=== PATIENT | male | born 1995 | race Caucasian/White ===

== ENCOUNTER 2017-01-06 18:28 | Emergency (ER) | payer OTHER ==
[2017-01-06 18:34] VITALS: BP 129/90
[2017-01-06] MEDS ORDERED: Ketorolac INJ* 60 MG/2 ML VIAL IM ONE (20:16)
--- NOTE | 2017-01-06 20:24 | ED ---
Throat Pain/Nasal Congestion - HPI Summary HPI Summary: Pt here w/ dental pain along Rt upper molar (wisdom tooth) x 1 month. Saw a dentist who diagnosed him w/ wisdom tooth impaction. Was prescribed percocet 5/ 325mg 12/03 and again 12/07/2016. Pain returned again and dentist rx'd percocet again 01/03 for 6 days - reports he's had so much pain, he's gone through it all already. Reports it's not helping the pain and he feels pain is worse when it wears off. Has not been taking NSAID's. Was rx'd an anbx but hasn't been taking as he can't swallow pills. Denies fever ,chills, drainage into mouth, facial or neck swelling. - History of Current Complaint Chief Complaint: EDDentalPain Time Seen by Provider: 01/06/17 19:34 Hx Obtained From: Patient - Allergies/Home Medications Allergies/Adverse Reactions: Allergies Allergy/AdvReac Type Severity Reaction Status Date / Time No Known Allergies Allergy Verified 01/06/17 18:34 PMH/Surg Hx/FS Hx/Imm Hx Previously Healthy: Yes Endocrine/Hematology History: Denies: Hx Anticoagulant Therapy, Hx Diabetes, Hx Thyroid Disease, Autoimmune Disease Cardiovascular History: Denies: Hx Congestive Heart Failure, Hx Deep Vein Thrombosis, Hx Hypertension , Hx Myocardial Infarction, Hx Pacemaker/ICD Respiratory History: Denies: Hx Asthma, Hx Chronic Obstructive Pulmonary Disease (COPD), Hx Lung Cancer, Hx Pneumonia, Hx Pulmonary Embolism GI History: Denies: Hx Gall Bladder Disease, Hx Gastrointestinal Bleed, Hx Ulcer, Hx Urosepsis History: Denies: Hx Kidney Stones, Hx Renal Disease Neurological History: Denies: Hx Dementia, Hx Migraine, Hx Seizures, Hx Transient Ischemic Attacks (TIA) Psychiatric History: Denies: Hx Anxiety, Hx Depression, Hx Schizophrenia, Hx Bipolar Disorder Infectious Disease History: No Infectious Disease History: Denies: History Other Infectious Disease, Traveled Outside the [place] in Last 30 Days - Family History Known Family History: Negative: None, Cardiac Disease, Hypertension - Social History Occupation: Student Lives: With Family Alcohol Use: None Hx Substance Use: No Substance Use Type: Reports: None Hx Tobacco Use: No Smoking Status (MU): Never Smoked Tobacco Review of Systems Constitutional: Negative Negative: Fever, Chills, Fatigue Eyes: Negative Negative: Photophobia, Blurred Vision, Diplopia Positive: Dental Pain - see HPI. Negative: Sore Throat, Ear Ache, Nasal Discharge Cardiovascular: Negative Negative: Chest Pain Respiratory: Negative Negative: Shortness Of Breath Gastrointestinal: Negative Negative: Vomiting, Nausea Positive: no symptoms reported Musculoskeletal: Negative Negative: Arthralgia, Myalgia Skin: Negative Negative: Rash, Bruising Neurological: Negative Negative: Headache Psychological: Normal All Other Systems Reviewed And Are Negative: Yes Physical Exam Triage Information Reviewed: Yes Vital Signs On Initial Exam: Initial Vitals Temp Pulse Resp BP Pulse Ox 99.1 F 60 17 129/90 98 01/06/17 18:30 10 18:30 01/06/17 18:30 01/06/17 18:30 01/06/17 18:30 Vital Signs Reviewed: Yes Appearance: Positive: Well-Appearing, No Pain Distress, Well-Nourished Skin: Positive: Warm, Dry - no erythema over face Head/Face: Positive: Normal Head/Face Inspection - NTTP, no edema Eyes: Positive: Normal, EOMI, Conjunctiva Clear ENT: Positive: Normal ENT inspection, Hearing grossly normal, Pharynx normal - mucosa moist, TMs normal. Negative: Nasal congestion, Nasal drainage, Tonsillar swelling, Tonsillar exudate, Trismus Dental: Positive: Other - #1 appears swollen and tooth trying to break through gingiva - no edema, no erythema, no drainage. Negative: Gross Decay/Caries @, Dental Fracture @, Abscess @, Bleeding Neck: Positive: Supple, Nontender, No Lymphadenopathy Respiratory/Lung Sounds: Positive: Breath Sounds Present. Negative: Stridor Cardiovascular: Positive: Normal Abdomen Description: Positive: Soft Musculoskeletal: Positive: Normal, Strength/ROM Intact Neurological: Positive: Normal, Sensory/Motor Intact, Alert, Oriented to Person Place, Time, CN Intact II-III Psychiatric: Positive: Normal Procedures - Procedure Summary Procedure Summary: #1 nerve block - topical lidocaine + cetacaine + 0.5mL bupivicaine injected w/ adequate infiltration w/ good results - pt reports relief of pain/pressure Diagnostics - Vital Signs Vital Signs Temp Pulse Resp BP Pulse Ox 01/06/17 18:30 99.1 F 60 17 129/90 98 - Laboratory Lab Statement: Any lab studies that have been ordered have been reviewed, and results considered in the medical decision making process. Re-Evaluation - Re-Evaluation First Eval Change: Improved - reports some pain relief w/ toradol but dental pain is still bothersome - would like dental block Second Eval Change: Improved - pain resovled EENT Course/Dx - Course Course Of Treatment: Dental pain d/t wisdom tooth trying to break through ginigiva - Diagnoses Provider Diagnoses: Pain, dental
[2017-01-06] MEDS ORDERED: Bupivacaine 0.5%* 50 ML VIAL INJ ONE ×2 (22:26→22:44)
[2017-01-06] MEDS ORDERED: Bupivacaine 0.5% SDV PF* 30 ML VIAL ONE (22:44)
[2017-01-06] MEDS ORDERED: Ketorolac TAB * 10 MG TAB PO ONE (23:22)
== END 2017-01-06 23:36 | disposition home or self-care (01) ==
LOC: ED 18:28
DX: K08.89 Other specified disorders of teeth and supporting structures (principal)
CPT/HCPCS: 96372; 99282; J1885

== ENCOUNTER 2018-12-22 21:54 | Emergency (ER) | payer OTHER ==
[2018-12-23] MEDS ORDERED: oxyCODONE TAB* 5 MG TAB PO ONE (03:32)
--- NOTE | 2018-12-23 03:35 | ED ---
Throat Pain/Nasal Congestion - HPI Summary HPI Summary: Patient complains of lower right dental pain 3 days. Patient states he has appointment with dentist this Saturday but is having a hard time and during pain. Has tried ibuprofen with no relief. Denies purulent discharge, other symptoms , pain or injury. Medical history is none. - History of Current Complaint Chief Complaint: EDDentalPain Time Seen by Provider: 12/23/18 03:06 Hx Obtained From: Patient Onset/Duration: Gradual Onset, Lasting Days Severity: Severe Associated Signs And Symptoms: Positive: Negative Cough: None - Allergies/Home Medications Allergies/Adverse Reactions: Allergies Allergy/AdvReac Type Severity Reaction Status Date / Time No Known Allergies Allergy Verified 12/22/18 22:05 PMH/Surg Hx/FS Hx/Imm Hx Endocrine/Hematology History: Denies: Hx Anticoagulant Therapy, Hx Diabetes, Hx Thyroid Disease Cardiovascular History: Denies: Hx Congestive Heart Failure, Hx Deep Vein Thrombosis, Hx Hypertension , Hx Myocardial Infarction, Hx Pacemaker/ICD Respiratory History: Denies: Hx Asthma, Hx Chronic Obstructive Pulmonary Disease (COPD), Hx Lung Cancer, Hx Pneumonia, Hx Pulmonary Embolism GI History: Denies: Hx Gall Bladder Disease, Hx Gastrointestinal Bleed, Hx Ulcer, Hx Urosepsis History: Denies: Hx Kidney Stones, Hx Renal Disease Sensory History: Denies: Hx Eye Prosthesis Opthamlomology History: Denies: Hx Legally Blind EENT History: Denies: Hx Deafness Neurological History: Denies: Hx Dementia, Hx Migraine, Hx Seizures, Hx Transient Ischemic Attacks (TIA) Psychiatric History: Denies: Hx Anxiety, Hx Depression, Hx Schizophrenia, Hx Bipolar Disorder - Immunization History Immunizations Up to Date: Yes Infectious Disease History: No Infectious Disease History: Denies: History Other Infectious Disease, Traveled Outside the [place] in Last 30 Days - Family History Known Family History: Negative: None, Cardiac Disease, Hypertension - Social History Alcohol Use: None Hx Substance Use: No Substance Use Type: Reports: None Hx Tobacco Use: No Smoking Status (MU): Never Smoked Tobacco Review of Systems Constitutional: Negative Eyes: Negative Positive: Dental Pain Cardiovascular: Negative Respiratory: Negative Gastrointestinal: Negative Genitourinary: Negative Musculoskeletal: Negative Skin: Negative Neurological: Negative Psychological: Normal All Other Systems Reviewed And Are Negative: Yes Physical Exam Triage Information Reviewed: Yes Vital Signs On Initial Exam: Initial Vitals Temp Pulse Resp BP Pulse Ox 99.9 F 101 20 165/102 100 12/22/18 22:02 12/22/18 22:02 12/22/18 22:02 12/22/18 22:02 12/22/18 22:02 Vital Signs Reviewed: Yes Appearance: Positive: Well-Appearing Skin: Positive: Warm Head/Face: Positive: Normal Head/Face Inspection Eyes: Positive: Normal ENT: Positive: Normal ENT inspection Dental: Positive: Gross Decay/Caries @. Negative: Abscess @, Bleeding Neck: Positive: Supple Respiratory/Lung Sounds: Positive: Clear to Auscultation Cardiovascular: Positive: Normal Abdomen Description: Positive: Nontender Musculoskeletal: Positive: Normal Neurological: Positive: Normal Psychiatric: Positive: Normal AVPU Assessment: Alert - Ethel Coma Scale Best Eye Response: 4 - Spontaneous Best Motor Response: 6 - Obeys Commands Best Verbal Response: 5 - Oriented Coma Scale Total: 15 Diagnostics - Vital Signs Vital Signs Temp Pulse Resp BP Pulse Ox 12/23/18 00:36 99.5 F 62 18 137/86 99 12/22/18 22:02 99.9 F 101 20 165/102 100 - Laboratory Lab Statement: Any lab studies that have been ordered have been reviewed, and results considered in the medical decision making process. EENT Course/Dx - Course Course Of Treatment: Patient complains of lower right dental pain 3 days. Patient states he has appointment with dentist this Saturday but is having a hard time and during pain. Has tried ibuprofen with no relief. Denies purulent discharge, other symptoms, pain or injury. Medical history is none. Vital signs within normal limits. No apical abscess or oral lesions noted. Follow- up with dentist. - Diagnoses Provider Diagnoses: Pain, dental Discharge ED - Sign-Out/Discharge Documenting (check all that apply): Patient Departure Patient Received Moderate/Deep Sedation with Procedure: No - Discharge Plan Condition: Stable Disposition: HOME Prescriptions: Oxycodone HCl 5 mg PO TID 2 Days #6 tablet MDD 3 tabs Patient Education Materials: Toothache (ED) Referrals: Gisele Briggs DO [Primary Care Provider] - Additional Instructions: Follow-up with your dentist for further evaluation. Alternate ibuprofen 600 mg with Tylenol 650 mg every 3 hours as needed for for pain. Take oxycodone for breakthrough pain. - Billing Disposition and Condition Condition: STABLE Disposition: Home
[2018-12-23 04:04] VITALS: BP 124/47
== END 2018-12-23 04:01 | disposition home or self-care (01) ==
LOC: ED 21:54
DX: K08.89 Other specified disorders of teeth and supporting structures (principal)
CPT/HCPCS: 99282; A9270-GY